=== PATIENT | female | born 1935 | race Native Hawaiian/Other Pacific Islander ===

== ENCOUNTER → 2016-10-19 17:41 | Outpatient (CLI) | payer OTHER ==
[~2016-10-19 17:41] MED LIST: DULO30CA OR; GLIP2.5T3 PO; NEXIUM20 M1 PO
== END | disposition home or self-care (01) ==
LOC: AMB 17:41
DX: M54.89 Other dorsalgia (principal)

== ENCOUNTER 2016-10-20 07:41 | Outpatient (CLI) | payer OTHER | END 2016-10-20 07:48 | disposition short-term general hospital (02) | LOC: AMB 07:41 | DX: G89.18 Other acute postprocedural pain (principal) | CPT/HCPCS: A0425; A0429 ==

== ENCOUNTER 2016-10-20 07:57 | Emergency (ER) | payer OTHER ==
[~2016-10-20] VITALS: Ht 162.6 cm; Wt 81.6 kg
[2016-10-20 07:50] VITALS: TEMP 99.3
[2016-10-20 08:43] LABS: PLATELET COUNT 297 K/uL (152-353)
[2016-10-20 08:51] LABS: POTASSIUM 3.7 mmol/L (3.6-5.2); SODIUM 132 mmol/L (136-145)
[2016-10-20 09:03] VITALS: BP 170/73
== END 2016-10-20 09:14 | disposition home or self-care (01) ==
LOC: ED 07:57
DX: M54.5 Low back pain (principal); Z98.890 Other specified postprocedural states
CPT/HCPCS: 36415; 80053; 85027; 99283

== ENCOUNTER 2016-12-04 15:11 | Outpatient (CLI) | payer OTHER ==
[2016-12-04 15:43] LABS: PLATELET COUNT 399 K/uL (152-353)
[2016-12-04 16:28] LABS: POTASSIUM 4.6 mmol/L (3.6-5.2); SODIUM 137 mmol/L (136-145)
== END 2016-12-04 20:03 | disposition home or self-care (01) ==
LOC: LAB 15:11
PROVIDERS: Nurse Practitioner Family
DX: E11.9 Type 2 diabetes mellitus without complications (principal); M06.9 Rheumatoid arthritis, unspecified; E78.00 Pure hypercholesterolemia, unspecified; J44.9 Chronic obstructive pulmonary disease, unspecified
CPT/HCPCS: 80053; 80061; 82306; 82607; 83036; 84439; 84443; 85027

== ENCOUNTER 2018-12-20 18:18 | Outpatient (CLI) | payer OTHER ==
[2018-12-20] MEDS ORDERED: CELECOXIB100 MG PO (19:00)
[2018-12-20] MEDS ORDERED: METFORMIN HCL500 M1 PO (19:00)
[2018-12-20] MEDS ORDERED: ESOM40CA PO (19:00)
[2018-12-20] MEDS ORDERED: TRAMADOL HYDROC50 MG PO (19:01)
[2018-12-20] MEDS ORDERED: CLARITIN10 MG PO (19:01)
[2018-12-20] MEDS ORDERED: KP FOLIC ACID1 MG PO (19:02)
[2018-12-20] MEDS ORDERED: NEURONTIN 100M100 MG PO (19:02)
[2018-12-20] MEDS ORDERED: ASA LOW DOSE81 MG PO (19:04)
[2018-12-21] MEDS ORDERED: METF500T PO (09:44)
[2018-12-21] MEDS ORDERED: METHOTREXATE 2.5 MG/ML PO (09:50)
[2018-12-21] MEDS ORDERED: NEURONTIN 100M100 MG PO (09:51)
[2018-12-21] MEDS ORDERED: MULTIVITAMIN AD1 TAB PO (09:53)
[2018-12-21] MEDS ORDERED: CALCI20 PO (09:56)
[2018-12-21] MEDS ORDERED: D3-50 PO (09:56)
[2018-12-21] MEDS ORDERED: TREXALL10 MG PO (13:20)
== END 2018-12-20 18:26 | disposition short-term general hospital (02) ==
LOC: AMB 18:18
DX: R05 Cough (principal); J02.9 Acute pharyngitis, unspecified
CPT/HCPCS: A0425; A0427

== ENCOUNTER 2018-12-20 18:28 | Inpatient (IN) | payer OTHER ==
[~2018-12-20] VITALS: Ht 162.6 cm; Wt 69.6 kg
[2018-12-20 18:28] VITALS: BP 149/65; TEMP 98.1
[2018-12-20] MEDS ORDERED: ESOM40CA PO (19:00)
[2018-12-20] MEDS ORDERED: CELECOXIB100 MG PO (19:00)
[2018-12-20] MEDS ORDERED: METFORMIN HCL500 M1 PO (19:00)
[2018-12-20] MEDS ORDERED: TRAMADOL HYDROC50 MG PO (19:01)
[2018-12-20] MEDS ORDERED: CLARITIN10 MG PO (19:01)
[2018-12-20] MEDS ORDERED: NEURONTIN 100M100 MG PO (19:02)
[2018-12-20] MEDS ORDERED: KP FOLIC ACID1 MG PO (19:02)
[2018-12-20] MEDS ORDERED: ASA LOW DOSE81 MG PO (19:04)
[2018-12-20 20:13] LABS: PLATELET COUNT 403 K/uL (152-353)
[2018-12-20 20:22] LABS: POTASSIUM 4.5 mmol/L (3.6-5.2)
[2018-12-21 00:50] VITALS: BP 137/67; TEMP 97.8; Ht 162.6 cm; Wt 69.6 kg
[2018-12-21 03:47] VITALS: BP 148/70; TEMP 98.1
[2018-12-21] MEDS ORDERED: METF500T PO (09:44)
[2018-12-21] MEDS ORDERED: METHOTREXATE 2.5 MG/ML PO (09:50)
[2018-12-21] MEDS ORDERED: NEURONTIN 100M100 MG PO (09:51)
[2018-12-21] MEDS ORDERED: MULTIVITAMIN AD1 TAB PO (09:53)
[2018-12-21] MEDS ORDERED: CALCI20 PO (09:56)
[2018-12-21] MEDS ORDERED: D3-50 PO (09:56)
[2018-12-21 12:00] VITALS: BP 133/42; TEMP 98.2
[2018-12-21] MEDS ORDERED: TREXALL10 MG PO (13:20)
[2018-12-21 16:00] VITALS: BP 115/72; TEMP 98.7
[2018-12-21 20:00] VITALS: BP 133/61; TEMP 100.1
[2018-12-22] VITALS: BP 119/59; TEMP 99
[2018-12-22 04:00] VITALS: BP 124/86; TEMP 98.6
[2018-12-22 04:27] LABS: PLATELET COUNT 383 K/uL (152-353)
[2018-12-22 04:36] LABS: POTASSIUM 4.2 mmol/L (3.6-5.2)
[2018-12-22 08:00] VITALS: BP 120/57; TEMP 98.1
[2018-12-22 12:00] VITALS: BP 108/50; TEMP 98.6
[2018-12-22 16:00] VITALS: BP 120/53; TEMP 98.1
[2018-12-22 20:00] VITALS: BP 116/56; TEMP 98.6
[2018-12-23] VITALS (7 sets, daily range): BP systolic 100–140; BP diastolic 47–89; TEMP 98.2–100
[2018-12-24 03:59] VITALS: BP 113/58; TEMP 98.9
[2018-12-24 08:00] VITALS: BP 97/77; TEMP 97.7
== END 2018-12-24 09:40 | disposition swing bed (61) | DRG 194 ==
LOC: ED 18:29 → MED/SURG 23:23
PROVIDERS: Emergency Medicine; ADMIT Internal Medicine
DX: J18.8 Other pneumonia, unspecified organism (principal); E44.0 Moderate protein-calorie malnutrition; M06.89 Other specified rheumatoid arthritis, multiple sites; K21.9 Gastro-esophageal reflux disease without esophagitis; E11.42 Type 2 diabetes mellitus with diabetic polyneuropathy; I10 Essential (primary) hypertension; R53.1 Weakness; R26.89 Other abnormalities of gait and mobility; R62.7 Adult failure to thrive
CPT/HCPCS: 36415; 80048; 80053; 84134; 85027; 87040; 87899; 94640; 94664; 94760; 96361; 96365; 99283; J0132; J0456; J0696; J1650; J2405; J8610; Q9963

== ENCOUNTER 2018-12-24 09:40 | Inpatient (IN) | payer OTHER ==
[~2018-12-24] VITALS: Ht 162.6 cm; Wt 67.7 kg
[~2018-12-24 09:40] MED LIST changes: +ASA LOW DOSE81 MG PO; +CALCI20 PO; +CELECOXIB100 MG PO; +CLARITIN10 MG PO; +D3-50 PO; +ESOM40CA PO; +KP FOLIC ACID1 MG PO; +METF500T PO; +METFORMIN HCL500 M1 PO; +METHOTREXATE 2.5 MG/ML PO; +MULTIVITAMIN AD1 TAB PO; +NEURONTIN 100M100 MG PO; +TRAMADOL HYDROC50 MG PO; +TREXALL10 MG PO
[2018-12-24 12:31] VITALS: BP 97/77; TEMP 97.7; Ht 162.6 cm; Wt 67.7 kg
[2018-12-24 15:57] VITALS: BP 110/62
[2018-12-24 20:30] VITALS: BP 131/60; TEMP 98.1
[2018-12-25 20:55] VITALS: BP 129/58; TEMP 98.1
[2018-12-26 08:00] VITALS: BP 122/57; TEMP 97.6
[2018-12-26 20:00] VITALS: BP 125/51; TEMP 98.2
[2018-12-27 20:09] VITALS: BP 131/62; TEMP 98.6
[2018-12-28 08:00] VITALS: BP 110/57; TEMP 97.8
[2018-12-28 20:13] VITALS: BP 145/64; TEMP 98.2
[2018-12-29 08:00] VITALS: BP 110/42; TEMP 97.9
[2018-12-29 20:06] VITALS: BP 144/77; TEMP 97.9
[2018-12-30 08:00] VITALS: BP 121/56; TEMP 97.6
[2018-12-30 20:00] VITALS: BP 136/60; TEMP 98.6
[2018-12-31 08:00] VITALS: BP 147/66; TEMP 97.9
[2018-12-31 19:51] VITALS: BP 135/58; TEMP 97.1
[2019-01-01 08:00] VITALS: BP 117/41; TEMP 98.1
[2019-01-01 20:00] VITALS: BP 143/64; TEMP 97.6
[2019-01-02 08:00] VITALS: BP 130/61; TEMP 98
[2019-01-02 20:00] VITALS: BP 116/53; TEMP 98.1
[2019-01-03 08:00] VITALS: BP 115/49; TEMP 97.9
[2019-01-03 20:00] VITALS: BP 118/61; TEMP 87.9; TEMP 98
[2019-01-04 08:00] VITALS: BP 128/62; TEMP 97.6
[2019-01-04 20:00] VITALS: BP 114/71; TEMP 97.7
[2019-01-05 08:00] VITALS: BP 110/55; TEMP 97.6
[2019-01-05 20:00] VITALS: BP 112/59; TEMP 98.3
[2019-01-06 08:00] VITALS: BP 125/59; TEMP 97.8
[2019-01-06 20:00] VITALS: BP 130/60; TEMP 98
[2019-01-07 08:00] VITALS: BP 95/67; TEMP 97.6
[2019-01-07 20:00] VITALS: BP 120/47; TEMP 97.9
[2019-01-08 08:00] VITALS: BP 119/56; TEMP 98.1
[2019-01-08 20:00] VITALS: BP 94/48; TEMP 98.4
[2019-01-09 08:00] VITALS: BP 118/44; TEMP 97.8
[2019-01-09 20:00] VITALS: BP 110/82; TEMP 98.1
[2019-01-10 08:04] VITALS: BP 119/52; TEMP 97.9
[2019-01-10 20:00] VITALS: BP 137/57; TEMP 97.8
[2019-01-11 20:00] VITALS: BP 131/54; TEMP 98.1
[2019-01-12 08:00] VITALS: BP 122/50; TEMP 97.9
== END 2019-01-12 13:50 | disposition home health service (06) | DRG 556 ==
LOC: MED/SURG 09:40
PROVIDERS: ADMIT Internal Medicine
DX: M62.81 Muscle weakness (generalized) (principal); E44.0 Moderate protein-calorie malnutrition; E11.40 Type 2 diabetes mellitus with diabetic neuropathy, unspecified; M06.89 Other specified rheumatoid arthritis, multiple sites; R62.7 Adult failure to thrive; R26.89 Other abnormalities of gait and mobility; I10 Essential (primary) hypertension; K21.9 Gastro-esophageal reflux disease without esophagitis
CPT/HCPCS: 94640; 94664; 94760

== ENCOUNTER 2019-01-29 16:31 | Outpatient (CLI) | payer OTHER ==
[2019-01-29 17:05] LABS: POTASSIUM 4.6 mmol/L (3.6-5.2)
[2019-01-29 17:10] LABS: PLATELET COUNT 335 K/uL (152-353)
== END 2019-01-29 23:31 | disposition home or self-care (01) ==
LOC: LABW 16:31
PROVIDERS: Nurse Practitioner Family
DX: E44.0 Moderate protein-calorie malnutrition (principal); E11.40 Type 2 diabetes mellitus with diabetic neuropathy, unspecified; I10 Essential (primary) hypertension
CPT/HCPCS: 36415; 80053; 85027; 85651; 86140

== ENCOUNTER 2019-02-14 21:08 | Emergency (ER) | payer OTHER ==
[~2019-02-14] VITALS: Ht 162.6 cm; Wt 63.5 kg
[2019-02-14 22:14] VITALS: BP 142/68; TEMP 98.4
== END 2019-02-14 22:16 | disposition home or self-care (01) ==
LOC: ED 21:08
DX: M06.80 Other specified rheumatoid arthritis, unspecified site (principal); M19.90 Unspecified osteoarthritis, unspecified site
CPT/HCPCS: 99282

== ENCOUNTER 2020-01-28 17:04 | Outpatient (CLI) | payer OTHER | END 2020-01-28 19:52 | disposition home or self-care (01) | LOC: RAD 17:04 | DX: R05 Cough (principal); R10.9 Unspecified abdominal pain ==

== ENCOUNTER 2020-02-27 14:26 | Outpatient (CLI) | payer OTHER | END 2020-02-27 19:50 | disposition home or self-care (01) | LOC: RAD 14:26 | PROVIDERS: ATTEND Internal Medicine Infectious Disease | DX: B45.8 Other forms of cryptococcosis (principal) ==

== ENCOUNTER 2020-04-02 16:13 | Outpatient (CLI) | payer OTHER | END 2020-04-02 20:46 | LOC: RAD 16:13 | DX: R05 Cough (principal); R06.02 Shortness of breath ==

== ENCOUNTER 2020-05-20 17:40 | Outpatient (CLI) | payer OTHER | END 2020-05-20 22:22 | disposition home or self-care (01) | LOC: RAD 17:40 | DX: J18.9 Pneumonia, unspecified organism (principal); R05 Cough; B45.0 Pulmonary cryptococcosis ==